=== PATIENT | female | born 1995 | race Two or more races ===

== ENCOUNTER 2022-08-29 17:01 | Emergency (ER) | payer SELFPAY ==
[~2022-08-29] VITALS: Ht 160 cm; Wt 71.8 kg
[2022-08-29 17:15] VITALS: BP 109/71
[2022-08-29] MEDS ORDERED: KETOROLAC TROMETHAMINE 60 MG/2 ML VIAL IM ONE (20:15)
[2022-08-29] MEDS ORDERED: ACET-66 PO (21:47)
[2022-08-29] MEDS ORDERED: IBUP-1554 PO (21:47)
[2022-08-29] MEDS ORDERED: BACL10TA PO (21:47)
== END 2022-08-29 22:07 | disposition home or self-care (01) ==
LOC: EMS 17:08
DX: S16.1XXA Strain of muscle, fascia and tendon at neck level, initial encounter (principal); M79.18 Myalgia, other site; V98.8XXA Other specified transport accidents, initial encounter; Y93.89 Activity, other specified; Y92.89 Other specified places as the place of occurrence of the external cause; Y99.8 Other external cause status
CPT/HCPCS: 99283; 71045; 72040; 72070; 72100; 96372; J1885